=== PATIENT | male | born 1975 ===

== ENCOUNTER 2020-12-18 05:47 | Day surgery (SDC) | payer OTHER ==
[~2020-12-18 05:47] MED LIST: CATAFLAN PO; CLONAZEPAM2 MG PO; GABAPE; RESTORIL PO; SERAQUEL PO; SIMVASTA PO; ULTRAM50 MG PO; WELLBU PO; XANAX2 MG PO; ZOLOFT PO
== END 2020-12-18 19:47 | disposition home or self-care (01) ==
LOC: CIR.AMB 05:47 → ADM 11:15 → CIR.AMB 11:15
PROVIDERS: ATTEND Colon & Rectal Surgery
DX: K64.4 Residual hemorrhoidal skin tags (principal); K64.8 Other hemorrhoids; Z20.822 Contact with and (suspected) exposure to COVID-19